=== PATIENT | male | born 2000 | race Caucasian/White ===

== ENCOUNTER 2021-04-14 16:15 | Emergency (ER) | payer OTHER, SELFPAY ==
--- NOTE | 2021-04-14 16:32 | ED.SKABFB ---
HPI - Skin/Abscess/Foreign Bdy General Chief complaint: Skin/Abscess/Foreign Body Stated complaint: rash Source: patient Mode of arrival: ambulatory Limitations: no limitations History of Present Illness HPI narrative: Patient is a 20-year-old male who presents with insect bite to left lower leg x1 week. Patient reports 2 large areas of redness that have been increasing in size. He reports mild edema to the foot. He denies seeing insect but reports possible tick bite. He denies fever, chills, malaise or other complaints. He reports taking Benadryl and using topical creams without relief. Patient has no significant medical history. MD complaint: rash and insect bite/sting Related Data Allergies Allergy/AdvReac Type Severity Reaction Status Date / Time Penicillins Allergy Hives Verified 04/14/21 16:35 Review of Systems Review of Systems: Narrative: CONSTITUTIONAL: Denies fever, chills, or sweats. EYES: Denies visual changes, redness, or discharge. ENT: Denies rhinorrhea, congestion, sore throat, or otalgia. CARDIOVASCULAR: Denies chest pain, palpitations, or edema. RESPIRATORY: Denies cough or dyspnea. GASTROINTESTINAL: Denies abdominal pain, nausea, vomiting, or diarrhea. GENITOURINARY: Denies dysuria or hematuria. SKIN: 2 insect bites to left lower leg MUSCULOSKELETAL: Denies back pain, joint pain, or myalgia. NEUROLOGIC: Denies headache, numbness, dizziness, or weakness. PSYCHIATRIC: Denies anxiety or depression. [facility] Social History Social History (Updated 04/14/21 @ 16:47 by BHARAT Diaz) Smoking status: Never smoker Alcohol intake: never Substance use: current Substance use type: marijuana Living arrangements: with family Gender identity (if verbalized by the patient): Male Comments At the time of signature, I have reviewed and agree with nursing past medical, surgical, social, and family history unless otherwise noted. Please see nursing chart for further information. There is no relevant family history pertinent to the presenting complaint. Exam Narrative: Exam Narrative: GENERAL: Well-appearing, well-nourished, and in no acute distress. HEAD: Normocephalic, atraumatic. EYES: EOMI. No redness or drainage. Conjunctiva are normal. ENT: Mucous membranes pink and moist. CHEST: No respiratory distress. Clear to auscultation. HEART: Regular rate and rhythm. EXTREMITIES: Normal range of motion. No edema. SKIN: 2 approximate 8 cm bullseye rash areas with mild edema to LLE. NEURO: No focal deficits. Alert and oriented x3. Gait steady. PSYCH: Normal affect. No signs of depression or anxiety. MDM - Skin/Abscess/Foreign Bdy MDM Narrative Medical decision making narrative: Patient appears to have 2 bull's-eye areas of redness approximately 8 cm to left lower leg. Patient started on doxycycline at this time and instructed to follow-up with PCP in 3 to 5 days. Patient agrees with plan of care. Patient aware of red flags and when he should seek further treatment. Patient is stable for discharge home with outpatient follow-up as discussed. Differential Diagnosis Differential diagnosis: Likely abscess of skin or subcutaneous tissue, viral exanthem, dermatophytosis, urticaria and insect bites Critical Care Time Critical Care Time Critical Care Time: No Discharge Plan Discharge Clinical Impression: Insect bite Patient Disposition: Home, Self-Care Condition: Stable Instructions: Antibiotic Form, Insect Bite or Sting (ED), Tick Bite (ED) Additional Instructions: Take antibiotics as directed. Follow-up in 3 to 5 days with your PCP for wound recheck. If you have increased swelling, increased redness, fever, chills, body aches or headaches, please go to the emergency department for further evaluation. Prescriptions: New doxycycline monohydrate 100 mg capsule 100 mg PO BID 10 Days Qty: 20 RF: 0 Follow-up/Referrals: PHYSICIAN,NEWS WIRE PHOTO OPERATOR [Primary Care Provider] - Chaz Norwood MD [
[2021-04-14 16:33] VITALS: BP 144/99; PULSE 101; RESP 16; TEMP 36.7; O2SAT 100
== END 2021-04-14 16:44 | disposition home or self-care (01) ==
PROVIDERS: Emergency Provider Nurse Practitioner
DX: S80.862A Insect bite (nonvenomous), left lower leg, initial encounter (principal); W57.XXXA Bitten or stung by nonvenomous insect and other nonvenomous arthropods, initial encounter
CPT/HCPCS: 99203; G0463